=== PATIENT | male | born 1960 | race Caucasian/White ===

== ENCOUNTER 2021-04-24 10:37 | Outpatient (REF) | payer MEDICARE, SELFPAY | END 2021-04-24 10:38 | disposition home or self-care (01) | LOC: HO.BBR 10:37 | PROVIDERS: PCP Internal Medicine; Visit Provider Internal Medicine Hematology & Oncology | DX: D75.1 Secondary polycythemia (principal) | CPT/HCPCS: 85018; 99195 ==

== ENCOUNTER 2021-05-09 11:47 | Outpatient (REF) | payer OTHER, SELFPAY | END 2021-05-09 11:48 | disposition home or self-care (01) | LOC: HO.BBR 11:47 | PROVIDERS: Visit Provider Internal Medicine Hematology & Oncology | DX: D75.1 Secondary polycythemia (principal) | CPT/HCPCS: 85014; 85018; 99195 ==

== ENCOUNTER 2021-05-22 11:41 | Outpatient (REF) | payer OTHER, SELFPAY | END 2021-05-22 11:42 | disposition home or self-care (01) | LOC: HO.BBR 11:41 | PROVIDERS: Visit Provider Internal Medicine Hematology & Oncology | DX: D75.1 Secondary polycythemia (principal) | CPT/HCPCS: 85014; 85018; 99195 ==

== ENCOUNTER 2021-06-05 10:45 | Outpatient (REF) | payer OTHER, SELFPAY | END 2021-06-05 10:46 | disposition home or self-care (01) | LOC: HO.BBR 10:45 | PROVIDERS: Visit Provider Internal Medicine Hematology & Oncology | DX: D75.1 Secondary polycythemia (principal) | CPT/HCPCS: 85014; 85018; 99195 ==

== ENCOUNTER 2021-07-19 11:36 | Outpatient (REF) | payer OTHER, SELFPAY | END 2021-07-19 11:37 | disposition home or self-care (01) | LOC: HO.BBR 11:36 | PROVIDERS: Visit Provider Internal Medicine Hematology & Oncology | DX: D75.1 Secondary polycythemia (principal) | CPT/HCPCS: 85018; 99195 ==

== ENCOUNTER 2021-09-19 11:21 | Outpatient (REF) | payer OTHER, SELFPAY | END 2021-09-19 11:22 | disposition home or self-care (01) | LOC: HO.BBR 11:21 | PROVIDERS: Visit Provider Internal Medicine Hematology & Oncology | DX: D75.1 Secondary polycythemia (principal) | CPT/HCPCS: 85014; 85018; 99195 ==